=== PATIENT | female | born 1960 | race Caucasian/White ===

== ENCOUNTER 2025-02-10 06:27 | Day surgery (SDC) | payer MEDICARE, SELFPAY ==
[2025-02-10] VITALS (17 sets, daily range): BP systolic 93–135; BP diastolic 59–82; PULSE 59–77; RESP 14–18; TEMP 36.2–37; O2SAT 93–98; BMI 33.0
[2025-02-10] MEDS: LACTATED RINGERS 1000 ML 1,000 ML 100 ML IV ×2 (07:04→12:00)
[2025-02-10] MEDS: SODIUM CHLORIDE 0.9 % (FLUSH) 10 ML SYRINGE IVF ×2 (07:04→10:32)
[2025-02-10] MEDS: ACETAMINOPHEN 500 MG TABLET 1000 MG PO (07:04)
[2025-02-10] MEDS: OXYCODONE (CR) 10 MG TAB.ER.12H PO (07:04)
--- NOTE | 2025-02-10 07:07 | W.PM.H&PU ---
History & Physical Update History & Physical Update H&P Reviewed and patient assessed: No changes noted
--- NOTE | 2025-02-10 07:13 | SUR.PREOP ---
TIME?OUT:?0720 PT/RN/MDA?VERIFICATION?OF?SURGICAL?SITE,?PROCEDURE,?AND?CONSENT OBTAINED?PRIOR?TO?INVASIVE?PROCEDURE.
[2025-02-10] MEDS: fentaNYL 100 MCG/2 ML inj IVP (07:20)
[2025-02-10] MEDS: MIDAZOLAM HCL 1 MG/ML inj IVP (07:20)
[2025-02-10] MEDS: TRANEXAMIC ACID 100 MG/ML INJ 1000 MG IV (07:45)
[2025-02-10] MEDS: CEFAZOLIN 2 GM in 0.9 % SODIUM CHLORIDE Mini-bag 100 ML IVPB (07:45)
--- NOTE | 2025-02-10 07:45 | CRLHL7_ITS ---
For Patients: As a result of the Cures Act, medical imaging exams and procedure reports are released immediately into your electronic medical record. You may view this report before your referring provider. If you have questions, please contact your health care provider. Indication: Hip replacement surgery Technique: AP hip fluoroscopic images. Fluoroscopy time 27.1 seconds. Findings/Impression: Hardware from a left total hip arthroplasty is in satisfactory position. Dictated by Lc Bustillo MD @ 02/10/2025 10:04:43 AM (Electronically Signed)
--- NOTE | 2025-02-10 08:15 | SUR.OPER ---
patient's groin fold line has pea size skin opening preop
--- NOTE | 2025-02-10 09:28 | PM.ORPRC ---
Procedure Note Date of procedure: 02/10/25 Procedure: PREOPERATIVE DIAGNOSIS: 1. Left hip osteoarthritis, severe, primary POSTOPERATIVE DIAGNOSIS: 1. Left hip osteoarthritis, severe, primary PROCEDURE: 1. Left total hip arthroplasty-anterior approach 2. 17458 - intraoperative fluoroscopy up to 1 hour. SURGEON: Ronny Sun MD. BLEND TECHNICIAN: Singh Baxter PA-C; MATHEUS Calabrese - Of note, a skilled nurse practitioner physician assistant was critical for this case to aid in patient positioning, tissue retraction, limb manipulation/positioning, dislocation/relocation, patient safety, and closure. ANESTHESIA: General endotracheal anesthetic EBL: 300 mL IMPLANTS: DePuy J&J uncemented total hip [place] cup size 50, hole eliminator, +4 neutral liner Actis stem, standard offset, size 4 +1 mm ceramic 32mm head. COMPLICATIONS: None evident INDICATIONS: The patient is a pleasant 65-year-old female who has experienced severe left hip pain and difficulty bearing weight. Workup included x-rays which revealed severe osteoarthrosis in the hip. Given the deformity, the dysfunction, and the pain, as well as the failure of nonoperative management, recommendation was made for surgery. FINDINGS: Full-thickness chondral loss diffusely throughout the femoral head and acetabulum. Osteophytes around the femoral head/neck junction and perimeter of the acetabulum. Moderate effusion upon entering the joint. DESCRIPTION OF PROCEDURE: Following a thorough discussion of risks, benefits, and alternatives consent was obtained and the left hip was marked. The patient was brought to the operating room and placed supine on the operating table. Induction of anesthesia was undertaken. 2 g IV Ancef and 1 g tranexamic acid was administered within 1 hr of incision preoperatively. Proper time-out was performed identifying proper patient, site, procedure. The operative extremity was prepped and draped in the appropriate sterile fashion using ChloraPrep after the patient was positioned on the [place] table with head in neutral alignment and all bony prominences well padded. C-arm fluoroscopic imaging was utilized to confirm proper pelvis rotation and position, and to get true AP films of both the contralateral left, and the affected left hip. This is for comparison. A longitudinal incision was made starting approximately 1 cm distal to the ASIS, and 3-4 cm lateral. The incision was extended distally aiming toward the lateral border the patella. Sharp incision through skin and bovie cautery through the subcutaneous tissue allowed identification of the TFL fascia. This was sharply divided, and the fascia bluntly released from the muscle fibers as we dissected medial. Upon coming to the medial border, we were able to retract the TFL laterally, and penetrated the deeper fascia and identify the crossing circumflex vessels. These were ligated/cauterized. The rectus was elevated from the capsule, and retractors placed laterally and medially along the femoral neck to help with visualization of the capsule. We then performed an inverted T capsulotomy. The capsule was tagged for later repair. Retractors were placed inside the capsule. The femoral neck was visualized after releasing medially down to the lesser trochanter, along the saddle laterally, and up onto the acetabulum. The femoral neck cut was made in line with our preoperative templating. The head was removed in a single piece, and sized. We turned our attention to acetabular preparation. Initially, the labrum was resected from around the perimeter, the pulvinar was excised, allowing us to visualize the false wall. We started the reaming with a 43 mm reamer. This was medialized down to the true wall. We then enlarged our reamers sequentially up to one size less than the selected cup size. We trialed at the same size and found it to have an excellent fit. The selected cup was then opened, inserted, and impacted in line with the goal of 40-45? of abduction, and 20-25? of anteversion. This was confirmed on C-arm fluoroscopic imaging to be in the appropriate/goal position. Once the cup was placed we placed a hole eliminator and a liner consistent with preop planning. Attention was turned to the femoral preparation. The limb was extended, externally rotated, and adducted. The posteromedial capsule was released, as retractors were placed allowing excellent access to the proximal femur. Initially a safe deposit box rental clerk was followed by canal finder followed by various broaches. We broached sequentially up to size noted above, found it to have excellent rotational control, and trialing various heads and necks, revealed that appropriate neck offset, and the above noted head size provided the greatest stability, and rastafari of length, and offset. C-arm fluoroscopic imaging confirmed position of the stem, as well as leg lengths, which were compared with the pre procedure all fluoroscopic images. Trial implants were removed, the real femoral stem inserted, as was the ceramic head. After reducing, the leg was placed through range of motion and stability was confirmed anterior, posterior, and lateral. A 3 min Betadine soak was then performed, and thorough irrigation with normal saline followed. Closure of the capsule was performed with #1 PDS. Bleeding was confirmed to be controlled at this stage, and the TFL fascia was closed with #0 strata fix. Subcutaneous, and subcuticular closure was performed with 2-0 Vicryl and 4-0 Monocryl, respectively. Dressings were applied, and the patient was awoken from anesthesia and transferred the PACU in stable condition. A skilled nurse practitioner physician assistant was critical for this case to aid in patient positioning, tissue retraction, proximal femur exposure, limb manipulation/positioning, dislocation/relocation, patient safety, and closure. PLAN: 1. Weight bear as tolerated operative extremity. 2. 23 hr perioperative antibiotics. 3. Ice. 4. PT/OT consults for ambulation assistance/mobility education. 5. Social work consult for discharge planning. 6. DVT prophylaxis with at SCDs and Xarelto x5 days followed by aspirin for a total of 1 month..
--- NOTE | 2025-02-10 09:35 | P.ANES_ITS ---
Anesthesia Charges Start Date/Time Anesthesia Start Date: 02/10/25 Anesthesia Start Time: 07:28 Stop Date/Time Anesthesia Stop Date: 02/10/25 Anesthesia Stop Time: 09:34 Coding CPT Codes CPT Codes: ANESTH HIP ARTHROPLASTY - 29279 ([id number]) P2 - PATIENT W/MILD SYST DISEASE, QX - DATABASE ENGINEER SVC W/ MD MED DIRECTION, QK - ARC CUTTER PLASMA ARC 2-4 CNCRNT ANES PROC
--- NOTE | 2025-02-10 09:35 | W.ANESCHARGE ---
Anesthesia Charges Start Date/Time Anesthesia Start Date: 02/10/25 Anesthesia Start Time: 07:28 Stop Date/Time Anesthesia Stop Date: 02/10/25 Anesthesia Stop Time: 09:34 Coding CPT Codes CPT Codes: ANESTH HIP ARTHROPLASTY - 67013 ([id number]) P2 - PATIENT W/MILD SYST DISEASE, QX - ADVERTISING TRAFFIC MANAGER SVC W/ MD MED DIRECTION, QK - HEAD OF VISUAL MERCHANDISING 2-4 CNCRNT ANES PROC
--- NOTE | 2025-02-10 09:39 | P.ANES_ITS ---
Anesthesia Charges Start Date/Time Anesthesia Start Date: 02/10/25 Anesthesia Start Time: 07:28 Stop Date/Time Anesthesia Stop Date: 02/10/25 Anesthesia Stop Time: 09:34 Coding CPT Codes CPT Codes: ANESTH HIP ARTHROPLASTY - 59324 ([id number]) QK - AUTOMATION MANAGER 2-4 CNCRNT ANES PROC, QX - GEOLOGICAL SURVEY FIELD ASSISTANT SVC W/ MD MED DIRECTION, P2 - PATIENT W/MILD SYST DISEASE
--- NOTE | 2025-02-10 09:39 | W.PM.NB ---
Nerve Block Nerve Block Time Seen by Provider: 07:24 Date Seen: 02/10/25 Type of block requested by surgeon for post-operative analgesia: JAVI/LFCN Side: left Time out performed: Yes Verification of patient name: Yes Verification of date of : Yes Site marking: site marked Name of person performing procedure: Artur Continuous monitoring Was continuous monitoring of O2 sat, B/P, blending machine feeder, recorded every 15 minutes?: Yes Procedure Checklist: sterile prep, needles and gloves Ultrasound guided. Images saved: Yes Medications given in 5ml increments after negative aspiration: Marcaine %: 0.25 mL: 20 and Exparel mL: 10 Needle gauge: 22 Patient tolerated procedure well: Yes Additional comments: Needle noted below psoas tendon needle noted adjacent to LFCN Block Charges Block Charge (with Pro Fee): Other Periph Nerve Block Use of Ultrasound Machine for Block: Yes- US Guidance/pain block
--- NOTE | 2025-02-10 09:39 | W.ANESCHARGE ---
Anesthesia Charges Start Date/Time Anesthesia Start Date: 02/10/25 Anesthesia Start Time: 07:28 Stop Date/Time Anesthesia Stop Date: 02/10/25 Anesthesia Stop Time: 09:34 Coding CPT Codes CPT Codes: ANESTH HIP ARTHROPLASTY - 42384 ([id number]) QK - DEBIT AGENT 2-4 CNCRNT ANES PROC, QX - FACILITY WORKER SVC W/ MD MED DIRECTION, P2 - PATIENT W/MILD SYST DISEASE
[2025-02-10] MEDS: fentaNYL 100 MCG/2 ML inj 50 MCG IVP ×2 (09:45→09:59)
--- NOTE | 2025-02-10 09:47 | CRLHL7_ITS ---
For Patients: As a result of the Cures Act, medical imaging exams and procedure reports are released immediately into your electronic medical record. You may view this report before your referring provider. If you have questions, please contact your health care provider. Indication: Left total hip arthroplasty Technique: AP pelvis and lateral view left hip Findings/Impression: Hardware from a left total hip arthroplasty is in satisfactory position. Bone alignment is normal. No sign of acute fracture. Postop changes are within normal limits. Dictated by Lc Bustillo MD @ 02/10/2025 10:16:02 AM (Electronically Signed)
[2025-02-10] MEDS: HYDROmorphone 0.5 mg/0.5 ml inj IVP (10:31)
[2025-02-10] MEDS: hydrOXYzine pamoate 25 MG CAPSULE PO (10:31)
[2025-02-10] MEDS: ACETAMINOPHEN 325 MG TABLET PO (12:25)
[2025-02-10] MEDS: OXYCODONE 5 MG TABLET PO (12:26)
[2025-02-10] MEDS: IBUPROFEN 200 MG TABLET 400 MG PO (12:26)
== END 2025-02-10 14:15 | disposition home or self-care (01) ==
PROVIDERS: Visit Provider Orthopaedic Surgery Sports Medicine
PROC: (CPT 27130; principal; 2025-02-10 07:45)
DX: M16.12 Unilateral primary osteoarthritis, left hip (principal); G89.18 Other acute postprocedural pain
CPT/HCPCS: 27130; 01214; 64450; 73501; 76000; 76942; 86850; 86900; 86901; 97110; 97161; 97165; 97530; 97535; A9270; C1776; J0665; J0666; J0690; J1171; J2250; J2704; J3010; J3490; J7120

== ENCOUNTER 2025-02-24 07:30 | Outpatient (RCR) | payer MEDICARE, SELFPAY | END 2025-06-24 23:59 | disposition home or self-care (01) | PROVIDERS: Visit Provider Orthopaedic Surgery Sports Medicine | DX: Z48.89 Encounter for other specified surgical aftercare (principal); Z96.642 Presence of left artificial hip joint; Z51.89 Encounter for other specified aftercare | CPT/HCPCS: 97110; 97162 ==

== ENCOUNTER 2025-09-11 09:43 | Day surgery (SDC) | payer MEDICARE, SELFPAY ==
[2025-09-11] VITALS (23 sets, daily range): BP systolic 98–146; BP diastolic 58–86; PULSE 53–76; RESP 12–18; TEMP 35.8–37; O2SAT 91–100; BMI 31.7
[2025-09-11] MEDS: SODIUM CHLORIDE 0.9 % (FLUSH) 10 ML SYRINGE IVF (10:37)
[2025-09-11] MEDS: LACTATED RINGERS 1000 ML 1,000 ML 100 ML IV ×2 (10:37→15:06)
--- NOTE | 2025-09-11 11:00 | CRLHL7_ITS ---
For Patients: As a result of the Cures Act, medical imaging exams and procedure reports are released immediately into your electronic medical record. You may view this report before your referring provider. If you have questions, please contact your health care provider. Indication: Hip replacement surgery Technique: AP hip fluoroscopic image. Fluoroscopy time 30.3 seconds. Findings/Impression: Hardware from a right total hip arthroplasty is in satisfactory position. Dictated by Lc Bustillo MD @ 09/11/2025 3:34:28 PM (Electronically Signed)
[2025-09-11] MEDS: ACETAMINOPHEN 500 MG TABLET 1000 MG PO ×2 (11:55→18:31)
[2025-09-11] MEDS: OXYCODONE (CR) 10 MG TAB.ER.12H PO (11:55)
--- NOTE | 2025-09-11 11:57 | SUR.PREOP ---
TIME?OUT:?1155 PT/RN/MDA?VERIFICATION?OF?SURGICAL?SITE,?PROCEDURE,?AND?CONSENT OBTAINED?PRIOR?TO?INVASIVE?PROCEDURE.
[2025-09-11] MEDS: MIDAZOLAM HCL 1 MG/ML inj IVP (11:58)
--- NOTE | 2025-09-11 12:28 | W.PM.H&PU ---
History & Physical Update History & Physical Update H&P Reviewed and patient assessed: No changes noted
--- NOTE | 2025-09-11 12:36 | CRLHL7_ITS ---
For Patients: As a result of the Cures Act, medical imaging exams and procedure reports are released immediately into your electronic medical record. You may view this report before your referring provider. If you have questions, please contact your health care provider. Indication: Postop Technique: AP pelvis, AP hip centered pelvis and lateral views right hip Findings/Impression: Hardware from a right total hip arthroplasty is in satisfactory position. Bone alignment is normal. No sign of acute fracture. Postop changes are within normal limits. Dictated by Lc Bustillo MD @ 09/11/2025 3:32:15 PM (Electronically Signed)
[2025-09-11] MEDS: TRANEXAMIC ACID 100 MG/ML INJ 1000 MG IV (12:40)
--- NOTE | 2025-09-11 14:00 | P.ORPRC_ITS ---
Procedure Note Date of procedure: 09/11/25 Procedure: PREOPERATIVE DIAGNOSIS: 1. Right hip osteoarthritis, severe, primary POSTOPERATIVE DIAGNOSIS: 1. Right hip osteoarthritis, severe, primary PROCEDURE: 1. Right total hip arthroplasty-anterior approach 2. Intraoperative fluoroscopy interpreted by Ronny Sun M.D. for intraoperative evaluation of arthroplasty implant component positioning and leg length/offset evaluation. Fluoroscopy time was 30.3 seconds. SURGEON: Ronny Sun MD. CHANNELING MACHINE OPERATOR: MATHEUS See PA-C - Of note, a skilled janitorial assistant was critical for this case to aid in patient positioning, tissue retraction, limb manipulation/positioning, and closure. ANESTHESIA: General anesthetic EBL: 300 ml IMPLANTS: DePuy J&J uncemented total hip [place] cup size 50, hole eliminator, +4 neutral liner Actis stem, standard offset, size 4 +1 mm ceramic 32mm head COMPLICATIONS: None evident INDICATIONS: The patient is a pleasant 65-year-old who has experienced severe right hip pain and difficulty bearing weight. Workup included x-rays which revealed severe osteoarthrosis in the hip. Given the deformity, the dysfunction, and the pain, as well as the failure of nonoperative management, recommendation was made for surgery. FINDINGS: Full-thickness chondral loss diffusely throughout the femoral head and acetabulum. Osteophytes around the femoral head/neck junction. Moderate effusion upon entering the joint. DESCRIPTION OF PROCEDURE: Following a thorough discussion of risks, benefits, and alternatives consent was obtained and the right hip was marked. The patient was brought to the operating room and placed supine on the operating table. Induction of anesthesia was undertaken. 2 g IV Ancef and 1 g tranexamic acid was administered within 1 hr of incision preoperatively. Proper time-out was performed identifying proper patient, site, procedure. The operative extremity was prepped and draped in the appropriate sterile fashion using ChloraPrep after the patient was positioned on the [place] table with head in neutral alignment and all bony prominences well padded. C-arm fluoroscopic imaging was utilized to confirm proper pelvis rotation and position, and to get true AP films of both the contralateral left, and the affected right hip. This is for comparison. A longitudinal incision was made starting approximately 1 cm distal to the ASIS, and 2-3 cm lateral. The incision was extended distally aiming toward the fibular head. Sharp incision through skin and bovie cautery through the subcutaneous tissue allowed identification of the TFL fascia. This was sharply divided, and the fascia bluntly released from the muscle fibers as we dissected medial. Upon coming to the medial border, we were able to retract the TFL laterally, and penetrated the deeper fascia and identify the crossing circumflex vessels. These were ligated/cauterized. The rectus was elevated from the capsule, and retractors placed laterally and medially along the femoral neck to help with visualization of the capsule. We then performed an inverted T capsulotomy. The capsule was tagged for later repair. Retractors were placed inside the capsule. The femoral neck was visualized after releasing medially down to the lesser trochanter, along the saddle laterally, and up onto the acetabulum. The femoral neck cut was made in line with our preoperative templating. The head was removed in a single piece, and sized. We turned our attention to acetabular preparation. Initially, the labrum was resected from around the perimeter, the pulvinar was excised, allowing us to visualize the false wall. We started the reaming with a 45 mm reamer. This was medialized down to the true wall. We then enlarged our reamers sequentially up to one size less than the selected cup size. We trialed at the same size and found it to have an excellent fit. The selected cup was then opened, inserted, and impacted in line with the goal of 40? of abduction, and 20-25? of anteversion. This was confirmed on C-arm fluoroscopic imaging to be in the appropriate/goal position. Once the cup was placed we placed a hole eliminator and a liner consistent with preop planning. Attention was turned to the femoral preparation. The limb was extended, externally rotated, and adducted. The posteromedial capsule was released, as retractors were placed allowing excellent access to the proximal femur. Initially a boxing and pressing supervisor was followed by canal finder followed by various broaches. We broached sequentially up to the size noted above, found it to have excellent rotational control, and trialing various heads and necks, revealed that appropriate neck offset, and the above noted head size provided the greatest stability, and pentecostal of length, and offset. C-arm fluoroscopic imaging confirmed position of the stem, as well as leg lengths, which were compared with the pre procedure all fluoroscopic images. Trial implants were removed, the real femoral stem inserted, as was the appropriate head. After reducing, the leg was placed through range of motion and stability was confirmed anterior, posterior, and lateral. A 3 min Betadine soak was then performed, and thorough irrigation with normal saline followed. Sunita sure of the capsule was performed with #1 PDS. Bleeding was confirmed to be controlled at this stage, and the TFL fascia was closed with #0 strata fix. Subcutaneous, and subcuticular closure was performed with 2-0 Stratafix and 4-0 Stratafix, respectively. Dressings were applied, and the patient was awoken from anesthesia and transferred the PACU in stable condition. A skilled janitorial assistant was critical for this case to aid in patient positioning, tissue retraction, acetabular and proximal femoral exposure, limb manipulation/positioning, dislocation/relocation, patient safety, and closure. PLAN: 1. Weight bear as tolerated operative extremity. 2. 23 hr perioperative antibiotics. 3. Ice. 4. PT/OT consults for ambulation assistance/mobility education. 5. Social work consult for discharge planning. 6. DVT prophylaxis with at SCDs and Xarelto x5 days followed by aspirin for a total of 1 month.
--- NOTE | 2025-09-11 14:32 | P.ANES_ITS ---
Anesthesia Charges Start Date/Time Anesthesia Start Date: 09/11/25 Anesthesia Start Time: 12:26 Stop Date/Time Anesthesia Stop Date: 09/11/25 Anesthesia Stop Time: 14:31 Coding CPT Codes CPT Codes: ANESTH HIP ARTHROPLASTY - 96141 ([id number]) P2 - PATIENT W/MILD SYST DISEASE, QK - METAL COATER 2-4 CNCRNT ANES PROC, QX - MEDICAL ACCOUNTS RECEIVABLE SPECIALIST SVC W/ MD MED DIRECTION
--- NOTE | 2025-09-11 14:32 | W.ANESCHARGE ---
Anesthesia Charges Start Date/Time Anesthesia Start Date: 09/11/25 Anesthesia Start Time: 12:26 Stop Date/Time Anesthesia Stop Date: 09/11/25 Anesthesia Stop Time: 14:31 Coding CPT Codes CPT Codes: ANESTH HIP ARTHROPLASTY - 96876 ([id number]) P2 - PATIENT W/MILD SYST DISEASE, QK - LABORER TANBARK 2-4 CNCRNT ANES PROC, QX - YOUTH PROBATION OFFICER SVC W/ MD MED DIRECTION
--- NOTE | 2025-09-11 14:33 | P.ANES_ITS ---
Anesthesia Charges Start Date/Time Anesthesia Start Date: 09/11/25 Anesthesia Start Time: 12:26 Stop Date/Time Anesthesia Stop Date: 09/11/25 Anesthesia Stop Time: 14:31 Coding CPT Codes CPT Codes: ANESTH HIP ARTHROPLASTY - 24977 ([id number]) QK - ICT TEACHER 2-4 CNCRNT ANES PROC, P2 - PATIENT W/MILD SYST DISEASE, QX - BLADE GROOVER SVC W/ MD MED DIRECTION
--- NOTE | 2025-09-11 14:33 | W.ANESCHARGE ---
Anesthesia Charges Start Date/Time Anesthesia Start Date: 09/11/25 Anesthesia Start Time: 12:26 Stop Date/Time Anesthesia Stop Date: 09/11/25 Anesthesia Stop Time: 14:31 Coding CPT Codes CPT Codes: ANESTH HIP ARTHROPLASTY - 80319 ([id number]) QK - TITLE ABSTRACTOR 2-4 CNCRNT ANES PROC, P2 - PATIENT W/MILD SYST DISEASE, QX - CAMERA OPERATOR SVC W/ MD MED DIRECTION
--- NOTE | 2025-09-11 14:36 | W.PM.NB ---
Nerve Block Nerve Block Time Seen by Provider: 11:55 Date Seen: 09/11/25 Type of block requested by surgeon for post-operative analgesia: JAVI/LFCN Side: right Time out performed: Yes Verification of patient name: Yes Verification of date of : Yes Site marking: site marked Name of person performing procedure: Artur Continuous monitoring Was continuous monitoring of O2 sat, B/P, air sampling and monitoring, recorded every 15 minutes?: Yes Procedure Checklist: sterile prep, needles and gloves Ultrasound guided. Images saved: Yes Medications given in 5ml increments after negative aspiration: Ropivicaine %: 0.5 mL: 30 Needle gauge: 20 Precedex (mcg): 25 Patient tolerated procedure well: Yes Additional comments: Needle noted below psoas tendon needle noted adjacent to LFCN Block Charges Block Charge (with Pro Fee): Other Periph Nerve Block Use of Ultrasound Machine for Block: Yes- US Guidance/pain block
[2025-09-11] MEDS: LACTATED RINGERS 1000 ML 1,000 ML 75 ML IV (16:29)
[2025-09-11] MEDS: CEFAZOLIN 2 GM in 0.9 % SODIUM CHLORIDE Mini-bag 100 ML IVPB (18:32)
--- NOTE | 2025-09-11 19:38 | PC.NURSE ---
Pt up with A1, gait belt and walker to BR and chair. Denies nausea, tolerates regular diet. Active ice to R hip. Pain controlled with PRN meds per DEC. Will DC home with .
[2025-09-11] MEDS: SENNOSIDES 1 TAB TABLET 2 TAB PO (20:38)
[2025-09-11] MEDS: GABAPENTIN 300 MG CAPSULE PO (20:38)
--- NOTE | 2025-09-11 20:50 | P.IMCN_ITS ---
Date of Consult Consult date: 09/11/25 Requesting Physician: Orthopedics Primary Care Provider: Taras Grewal MD Consult Narrative Narrative: HOSPITALIST CONSULT PROCEDURE: -Right total hip arthroplasty-anterior approach -SURGEON: Ronny Sun MD. -ANESTHESIA: General anesthetic -EBL:300 ml -COMPLICATIONS: None evident The hospital medicine team was asked by the orthopedic surgery team to manage the patient's chronic pain and hx of wedge resection of her right lower lung 10 weeks prior to elective hip replacement. There have been no perioperative complications. I have updated and reviewed the active medical problems, past medical history, past surgical history, social history, allergies and medications in our electronic EMR. This includes a cross reference to care everywhere in [facility] and with [employer] [facility] databases. PHYSICAL EXAM: CODE STATUS: FULL CODE CONSTITUTIONAL: Conversive, good historian. A/O. Knows setting and context. VITAL SIGNS: see record. HEENT: Normocephalic, atraumatic. PERRL, EOMI, conjunctivae pink, no scleral icterus. Ears and nose externally normal. Pharynx normal. NECK: No JVD. No carotid bruit, no thyromegaly, no adenopathy. CHEST: Clear to auscultation bilaterally HEART: S1 and S2 normal. ABDOMEN: Flat, soft, nontender. Normal bowel sounds. Moderately obese. EXTREMITIES: No edema. MUSCULOSKELETAL: right hip SDI intact. NEURO: Cranial nerves intact. Mentation normal. Normal affect. SKIN: No rashes, petechiae, concerning changes PSYCHIATRIC: Mentation normal. INVESTIGATIONS: EMR Reviewed; Pre-OP Reviewed DISPOSITION: DVT: Agree with Ortho team decision - Xarelto to asp BID protocol. GI: PO intake PFSH PFSH Medical History (Updated 09/11/25 @ 21:20 by Inge Anaya MD) Thyroid cancer ?C73 - Malignant neoplasm of thyroid gland (ICD-10) Surgical History (Updated 09/11/25 @ 21:20 by Inge Anaya MD) S/P total right hip arthroplasty ?Z96.641 - Presence of right artificial hip joint (ICD-10) S/P lobectomy of lung (06/18/25) ?Z90.2 - Acquired absence of lung [part of] (ICD-10) S/P total left hip arthroplasty (02/10/25) ?Z96.642 - Presence of left artificial hip joint (ICD-10) History of section ?Z98.891 - History of uterine scar from previous surgery (ICD-10) Status post total left knee replacement ?Z96.652 - Presence of left artificial knee joint (ICD-10) Social History What is your current living situation?: I presently have a place to live Problems where you live: no known problems Problems where you live details: na In the past 12 months, utilities in danger of being shut off: no In past 12 months, lack of transportation kept you from medical appts, meetings, work, or getting things needed for daily living: no In the past 12 mos, have been you worried that your food would run out before you had money to buy more?: never true In the past 12 mos, the food you bought just didn't last and you didn't have money to buy more?: never true Smoking Status: Never smoker Do you use any of these nicotine containing products: None How often do you have a drink containing alcohol: 2-3 times a week AUDIT-C Alcohol total score: 3 Non-prescribed substance use: marijuana (any form) Non-prescribed substance use details: gummies Caffeine: Yes How often does anyone, including family, friends and others, physically hurt you : never How often does anyone, including family, friends and others, insult or talk down to you: never How often does anyone, including family, friends and others, threaten you with harm: never How often does anyone, including family, friends and others, scream or curse at you: never Are you using contraception or practicing any form of control: No service: No Meds Home Medications and Allergies Home Medications ?Medication ?Instructions ?Recorded ?Confirmed ?Type trazodone 50 mg tablet 50 mg PO HS PRN 02/07/2501/31 History acetaminophen 325 mg tablet 975 mg PO Q6H PRN 08/14/25 09/11/25 History (Tylenol) albuterol sulfate 90 mcg/actuation 2 puff inhalation Q 6H PRN wheezing 09/09/25 09/09/25 History aerosol inhaler gabapentin 300 mg capsule 300 mg PO TID 09/09/2509/11 History methocarbamol 500 mg tablet 250 mg PO Q6H PRN 09/09/25 09/09/25 History sennosides 8.6 mg-docusate sodium 1 tab PO BID PRN 12/0309/11/25 History 50 mg tablet (Senexon-S) tramadol 50 mg tablet 50 - 100 mg PO Q4H PRN moder ate 09/09/25 09/09/25 History Held on 09/11/25. pain Instructions: Resume on 10/09/25. aspirin 81 mg chewable tablet 81 mg PO BID for DVT pro phylaxis 09/11/25 Rx (Aspirin Childrens) 30 days #60 tabs oxycodone 5 mg tablet 2.5 - 5 mg (0.5 - 1 x 5 mg) PO 09/11/25 Rx Q4-6H PRN Pain #42 tabs rivaroxaban 10 mg tablet (Xarelto) 10 mg PO DAILY DVT prophylaxis 4 09/11/25 Rx days #4 tabs Allergies Allergy/AdvReac Type Severity Reaction Status Date / Time No Known Drug Allergies Allergy Verified 09/11/25 12:01 Exam Const: Vital Signs, click to edit/add: Vital Signs - 24 hr 09/11/25 10:30 09/11/25 14:30 09/11/25 14:35 Temperature 98.4 F 96.6 F L Pulse Rate 66 56 L 54 L Pulse Rate [Left P ulse Oximeter] Respiratory Rate 18 12 12 Blood Pressure 137/76 111/60 99/61 Blood Pressure [Le ft Arm] Pulse Oximetry 98 94 94 Oxygen Delivery Me thod Room Air Nasal Cannula Nasal Cannula Oxygen Flow Rate 2 2 09/11/25 14:40 09/11/25 14:45 09/11/25 14:50 Temperature 96.7 F L Pulse Rate 53 L 54 L 57 L Pulse Rate [Left P ulse Oximeter] Respiratory Rate 16 16 16 Blood Pressure 101/63 98/65 109/65 Blood Pressure [Le ft Arm] Pulse Oximetry 98 100 96 Oxygen Delivery Me thod Nasal Cannula Nasal Cannula Room Air Oxygen Flow Rate 2 2 09/11/25 14:56 09/11/25 15:01 09/11/25 15:07 Temperature 96.9 F L 96.9 F L Pulse Rate 57 L 57 L 58 L Pulse Rate [Left P ulse Oximeter] Respiratory Rate 16 16 16 Blood Pressure 112/65 112/63 124/79 Blood Pressure [Le ft Arm] Pulse Oximetry 92 99 96 Oxygen Delivery Me thod Nasal Cannula Nasal Cannula Room Air Oxygen Flow Rate 2 2 09/11/25 15:11 09/11/25 15:34 09/11/25 15:45 Temperature 97.3 F L 96.4 F L Pulse Rate 60 Pulse Rate [Left P ulse Oximeter] 58 L Respiratory Rate 16 16 16 Blood Pressure 108/60 Blood Pressure [Le ft Arm] 127/68 126/69 Pulse Oximetry 98 100 100 Oxygen Delivery Me thod Room Air Room Air Room Air Oxygen Flow Rate 09/11/25 16:00 09/11/25 16:30 09/11/25 17:00 Temperature Pulse Rate Pulse Rate [Left P ulse Oximeter] 61 58 L 59 L Respiratory Rate 18 18 18 Blood Pressure Blood Pressure [Le ft Arm] 128/86 146/77 H 137/73 Pulse Oximetry 99 96 96 Oxygen Delivery Me thod Room Air Room Air Room Air Oxygen Flow Rate 09/11/25 17:30 09/11/25 18:20 09/11/25 19:22 Temperature 97.5 F L Pulse Rate Pulse Rate [Left P ulse Oximeter] 66 64 69 Respiratory Rate 18 16 16 Blood Pressure Blood Pressure [Le ft Arm] 102/71 119/72 114/63 Pulse Oximetry 97 91 95 Oxygen Delivery Me thod Room Air Room Air Room Air Oxygen Flow Rate 09/11/25 20:22 09/11/25 20:36 Temperature 97.6 F 97.5 F L Pulse Rate 60 60 Pulse Rate [Left P ulse Oximeter] Respiratory Rate 16 16 Blood Pressure 99/58 L 108/60 Blood Pressure [Le ft Arm] Pulse Oximetry 91 95 Oxygen Delivery Me thod Room Air Room Air Oxygen Flow Rate 1 2 Assessment and Plan Assessment and plan (1) S/P total right hip arthroplasty: Problem comment: 09/11/[address] Sun. Hospital medicine team is happy to follow the patient through to discharge. We are expecting a routine postoperative course. I have reconciled home medications and completed our part of the discharge. -I will spot check oxygen sats as there is a concern for hypoxia (anesthesia with fairly recent right lung wedge resection) Status: Acute (2) Necrotizing granulomatous inflammation of lung: Problem comment: -final biopsy on her right lower lung wedge resection (jun 2025 [facility]) - necrotizing granuloma - benign Status: Acute (3) S/P lobectomy of lung: Problem comment: 06/18/2025 - Robot-assisted right thoracoscopic lower lobe wedge resection, completion lobectomy, mediastinal lymph node dissection for pulmonary nodule - noncancerous. Status: Acute
[2025-09-12] MEDS: ACETAMINOPHEN 500 MG TABLET 1000 MG PO ×2 (00:06→06:13)
[2025-09-12] MEDS: CEFAZOLIN 2 GM in 0.9 % SODIUM CHLORIDE Mini-bag 100 ML IVPB (02:35)
[2025-09-12 02:40] VITALS: BP 104/69; PULSE 68; RESP 16; TEMP 37; O2SAT 97
--- NOTE | 2025-09-12 05:55 | PC.NURSE ---
Pt alert and oriented. Pt up with SBA. Pt?s dressing dry and intact. Pt?s pain level 0-5; see EMAR for intervention. Pt's dressing dry and intact.
--- NOTE | 2025-09-12 07:30 | PM.ORPN ---
Subjective Subjective Time Seen by Provider: 07:30 Date Seen: 09/12/25 Principal diagnosis: Status post right hip replacement Interval history: Sapp[place] is comfortable this morning. She has been ambulating in the hallways. She will be discharging to home today. Ortho Exam Narrative Exam Narrative: Alert and oriented x3. Patient is in no acute distress. Converses without labored breathing. Hearing is grossly intact. Ambulates with a walker. Examination of the right hip shows the dressing is intact. Normal soft tissue edema about the hip. CMS intact right lower extremity. Calves are soft and nontender. Const Vital Signs, click to edit/add: Vital Signs - 24 hr 09/11/25 10:30 09/11/25 14:30 09/11/25 14:35 Temperature 98.4 F 96.6 F L Pulse Rate 66 56 L 54 L Pulse Rate [Left Pulse Oximeter] Respiratory Rate 18 12 12 Blood Pressure 137/76 111/60 99/61 Blood Pressure [Left Arm] Pulse Oximetry 98 94 94 Oxygen Delivery Method Room Air Nasal Cannula Nasal Cannula Oxygen Flow Rate 2 2 09/11/25 14:40 09/11/25 14:45 09/11/25 14:50 Temperature 96.7 F L Pulse Rate 53 L 54 L 57 L Pulse Rate [Left Pulse Oximeter] Respiratory Rate 16 16 16 Blood Pressure 101/63 98/65 109/65 Blood Pressure [Left Arm] Pulse Oximetry 98 100 96 Oxygen Delivery Method Nasal Cannula Nasal Cannula Room Air Oxygen Flow Rate 2 2 09/11/25 14:56 09/11/25 15:01 09/11/25 15:07 Temperature 96.9 F L 96.9 F L Pulse Rate 57 L 57 L 58 L Pulse Rate [Left Pulse Oximeter] Respiratory Rate 16 16 16 Blood Pressure 112/65 112/63 124/79 Blood Pressure [Left Arm] Pulse Oximetry 92 99 96 Oxygen Delivery Method Nasal Cannula Nasal Cannula Room Air Oxygen Flow Rate 2 2 09/11/25 15:11 09/11/25 15:34 09/11/25 15:45 Temperature 97.3 F L 96.4 F L Pulse Rate 60 Pulse Rate [Left Pulse Oximeter] 58 L Respiratory Rate 16 16 16 Blood Pressure 108/60 Blood Pressure [Left Arm] 127/68 126/69 Pulse Oximetry 98 100 100 Oxygen Delivery Method Room Air Room Air Room Air Oxygen Flow Rate 09/11/25 16:00 09/11/25 16:30 09/11/25 17:00 Temperature Pulse Rate Pulse Rate [Left Pulse Oximeter] 61 58 L 59 L Respiratory Rate 18 18 18 Blood Pressure Blood Pressure [Left Arm] 128/86 146/77 H 137/73 Pulse Oximetry 99 96 96 Oxygen Delivery Method Room Air Room Air Room Air Oxygen Flow Rate 09/11/25 17:30 09/11/25 18:20 09/11/25 19:22 Temperature 97.5 F L Pulse Rate Pulse Rate [Left Pulse Oximeter] 66 64 69 Respiratory Rate 18 16 16 Blood Pressure Blood Pressure [Left Arm] 102/71 119/72 114/63 Pulse Oximetry 97 91 95 Oxygen Delivery Method Room Air Room Air Room Air Oxygen Flow Rate 09/11/25 20:22 09/11/25 20:36 09/11/25 21:26 Temperature 97.6 F 97.5 F L 98 F Pulse Rate 60 60 Pulse Rate [Left Pulse Oximeter] 66 Respiratory Rate 16 16 16 Blood Pressure 99/58 L 108/60 Blood Pressure [Left Arm] 120/83 Pulse Oximetry 91 95 97 Oxygen Delivery Method Room Air Room Air Room Air Oxygen Flow Rate 1 2 0 09/11/25 21:27 09/11/25 23:00 09/11/25 23:00 Temperature 98 F 98.6 F Pulse Rate 66 Pulse Rate [Left Pulse Oximeter] 76 Respiratory Rate 16 16 18 Blood Pressure 120/83 Blood Pressure [Left Arm] 125/67 Pulse Oximetry 97 97 98 Oxygen Delivery Method Room Air Room Air Room Air Oxygen Flow Rate 0 0 0 09/12/25 02:40 Temperature 98.6 F Pulse Rate Pulse Rate [Left Pulse Oximeter] 68 Respiratory Rate 16 Blood Pressure Blood Pressure [Left Arm] 104/69 Pulse Oximetry 97 Oxygen Delivery Method Room Air Oxygen Flow Rate Assessment and Plan Assessment and plan (1) S/P total right hip arthroplasty: Problem details: 09/11/[address] Sun. Hospital medicine team is happy to follow the patient through to discharge. We are expecting a routine postoperative course. I have reconciled home medications and completed our part of the discharge. -I will spot check oxygen sats as there is a concern for hypoxia (anesthesia with fairly recent right lung wedge resection) Status: Acute Assessment and Plan: Plan for discharge is today, and when they meets discharge criteria. DVT prophylaxis upon discharge [includes Xarelto 10mg daily for a total of 5 days, then Aspirin 81mg twice daily for 30 days]. Remove dressing 1 week. Observe wound and phone Orthopedics with any questions or concerns Use Ice on operative hip unrestricted. Return to clinic in 1-2 weeks as scheduled for a wound check Return to clinic in 6 weeks with surgeon Minimize narcotic use. Wean off and discontinue soon as possible. Activities as tolerated. No strenuous activity. Attend outpt PT She has Tylenol and senna at home. I have asked her to hold her tramadol. Do not want her taking oxycodone and tramadol at the same time. Now that she has had both hips replaced, hopefully she can discontinue the tramadol altogether.
[2025-09-12 08:05] VITALS: BP 114/73; PULSE 72; RESP 16; TEMP 36.6; O2SAT 96; O2SAT 97
[2025-09-12 08:10] VITALS: PULSE 68; PULSE 72; RESP 16
[2025-09-12] MEDS: RIVAROXABAN 10 MG TABLET PO (08:37)
[2025-09-12] MEDS: SENNOSIDES 1 TAB TABLET 2 TAB PO (08:37)
[2025-09-12] MEDS: GABAPENTIN 300 MG CAPSULE PO (08:38)
--- NOTE | 2025-09-12 11:48 | PC.NURSE ---
discharge. pt has been very pleasant. Pt alert and oriented x4. pain in the right hip is 2-5 2 in bed and 5 when up./ . Pt up with SBA. walker and GB. Pt?s dressing dry and intact.. did discharge with pt. SL was d/c intact and she got sent home with 2 ice packs. she got a wheel chair ride out/.
== END 2025-09-12 11:15 | disposition home or self-care (01) ==
LOC: OR 09:45 → MEDSURG 09:47
PROVIDERS: PCP Family Medicine; Visit Provider Orthopaedic Surgery Sports Medicine
PROC: (CPT 27130; principal; 2025-09-11 11:00)
DX: M16.11 Unilateral primary osteoarthritis, right hip (principal); G89.18 Other acute postprocedural pain; J85.0 Gangrene and necrosis of lung; Z90.2 Acquired absence of lung [part of]
CPT/HCPCS: 27130; 01214; 36415; 64450; 73501; 76942; 86850; 86900; 86901; 97116; 97161; 97165; 97530; A9270; C1776; J0330; J0690; J1100; J1171; J2250; J2405; J2704; J2795; J3010; J7120